=== PATIENT | female | born 1975 | race Caucasian/White ===

== ENCOUNTER 2021-02-20 15:40 | Emergency (ER) | payer OTHER ==
[~2021-02-20] VITALS: Ht 157.5 cm; Wt 99.8 kg
--- NOTE | 2021-02-20 15:44 | NUR ---
Patient arrived to ER stating her blood pressure was checked at dental office and noted to be high 190 systolic, on arrival patient B/P systolic noted at 125, MD at bedside for assessment
[2021-02-20 16:48] LABS: HEMATOCRIT 39.7 % (31.2-41.9); MEAN CORPUSCULAR HEMOGLOBIN 25.7 uug (24.7-32.8); PLATELET COUNT (AUTO) 327 K/uL (179-408)
[2021-02-20 17:04] LABS: CREATININE 0.8 mg/dL (0.6-1.3); POTASSIUM 3.2 mmol/L (3.5-5.1)
--- NOTE | 2021-02-20 18:19 | NUR ---
Patient discharged to home in stable condition. B/P noted at 143/92, no signs of acute distress noted. Written and verbal after care instructions given. Patient verbalizes understanding of instructions. Stressed follow up or return to ER for worsening s/s.
[2021-02-20 18:46] VITALS: BP 143/92
== END 2021-02-20 18:19 | disposition home or self-care (01) ==
LOC: ER 15:42
DX: I10 Essential (primary) hypertension (principal); E87.6 Hypokalemia
CPT/HCPCS: 36415; 85025; A4663